=== PATIENT | male | born 2000 | race Caucasian/White ===

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

== ENCOUNTER → 2022-01-20 | Outpatient (CLI) | payer OTHER ==
--- NOTE | 2022-01-20 13:45 | RAD ---
LEFT SHOULDER , 3 VIEWS Clinical Indication: Reason: Chronic Left shoulder pain. Started hurting a few days ago. / Spl. Inst ructions: / History: Comparison: None. Findings: There is no acute fracture or dislocation. The acromioclavicular and glenohumeral joints are intact. The visualized lung is clear. There is no evidence of a displaced rib fracture. There is no soft tiss ue abnormality. IMPRESSION: No acute fracture or dislocation. Electronically signed by: Elver Zazueta MD (01/20/2022 1:42 PM) [id number]
== END ==
LOC: RAD 13:09
PROVIDERS: ATTEND Nurse Practitioner Family
DX: M25.512 Pain in left shoulder (principal)
CPT/HCPCS: 73030